=== PATIENT | female | born 1950 | race Caucasian/White ===

== ENCOUNTER → 2021-03-26 | Outpatient (CLI) | payer OTHER ==
[~2021-03-26] MED LIST: ALPRAZOLAM 0.0.25 M1 PO; AMLODIPINE BESY10 MG PO; APAP650 PO; CRANBERRY500 M3 PO; DICLOFENAC SOD100 G1 TOP; ELIQUIS5 MG PO; HYDROCHLOROTHIA25 M1 PO; METOPROLOL TART25 MG PO; PAROXETINE HCL20 MG PO; PRINIVIL40 MG PO; PROTONIX40 M2 PO; [UNRECOGNIZED DRUG - OTHER] PO; [UNRECOGNIZED DRUG - OTHER] PO
[2021-03-26 13:00] LABS: URINE BILIRUBIN NEGATIVE (Negative); URINE BLOOD NEGATIVE (Negative); URINE CLARITY CLEAR; URINE COLOR YELLOW; URINE GLUCOSE-RANDOM* NEGATIVE (Negative); URINE KETONES NEGATIVE (Negative); URINE LEUKOCYTES-REFLEX NEGATIVE (Negative); URINE NITRITE-REFLEX NEGATIVE (Negative); URINE PROTEIN (DIPSTICK) NEGATIVE (Negative); URINE SPECIFIC GRAVITY 1.025 (1.005-1.035); URINE UROBILINOGEN 0.2 E.U./dl (0.2-1.0)
[2021-03-26 13:02] LABS: HEMATOCRIT 36.5 % (37.0-47.0); MCHC 32.9 g/dL (28.0-37.0); MCV 94.1 fL (80.0-100.0); RBC 3.88 mil/uL (4.20-5.00); RDW 12.8 % (10.5-14.5); WBC 6.5 thou/uL (4.0-11.0)
[2021-03-26 13:13] LABS: CALCIUM 9.3 mg/dL (8.5-10.1); CREATININE 1.9 mg/dL (0.6-1.0); POTASSIUM 4.4 mmol/L (3.5-5.1)
[2021-03-26 13:15] LABS: PROTIME 10.9 Seconds (10.5-12.1)
--- NOTE | 2021-03-26 14:51 | EKG ---
[place] [address] [facility] [employer] [place] [address] ELECTROCARDIOGRAM REPORT Name: OJ ENRIQUEZ [facility] [id number] Admission: 03/26/21 Attend Phys: Piotr Jones MD Discharge: Date of : 52 Report #: [id number] [facility] Test Date: 2021-03-26 Test Time: 12:55:18 Pat Name: OJ ENRIQUEZ Department: Room: Gender: F Equipment Installation Professional: MARISSA : 1950 Requested By: Piotr Jones Order Number: [id number] MD: Scar Urbano Measurements Intervals [place] Rate: 63 P: 51 SC: 209 QRS: 6 QRSD: 107 T: 35 QT: 419 QTc: 429 Interpretive Statements Sinus rhythm Abnormal R-wave progression, early transition Abnormal T, consider ischemia, anterior leads No previous ECG available for comparison Electronically Signed On 03-26-2021 14:50:56 MOTOR VEHICLES INSPECTOR by Scar Urbano [email or web address] <ELECTRONICALLY SIGNED> By: Scar Urbano MD, [facility] 03/26/21 1450 1255 1255 Scar Urbano MD, FACC /EPI
== END ==
LOC: PAC 10:10
PROVIDERS: ATTEND Orthopaedic Surgery
DX: Z01.812 Encounter for preprocedural laboratory examination (principal); Z01.810 Encounter for preprocedural cardiovascular examination; M17.11 Unilateral primary osteoarthritis, right knee

== ENCOUNTER 2021-04-09 08:50 | Observation (INO) | payer OTHER ==
[~2021-04-09] VITALS: Ht 160 cm; Wt 104.3 kg
[2021-04-09 10:15] VITALS: BP 115/66
[2021-04-09 20:23] VITALS: BP 100/60
[2021-04-10 07:40] VITALS: BP 129/79
[2021-04-10 15:24] VITALS: BP 124/79
--- NOTE | 2021-04-11 09:46 | O ---
[facility] [place] [address] OPERATIVE REPORT Name: OJ ENRIQUEZ Room #: 443-P [facility] Adalid Noriega#: [id number] Admission: 04/09/21 Attend Phys: Piotr Jones MD Discharge: 04/10/21 Date of : 52 Report #: [id number] THIS REPORT FOR: cc: Jeffrey Davidson MD, Thomas P. MD Abraham,Piotr Villagran MD ~ DATE OF SERVICE: 04/09/2021 PREOPERATIVE DIAGNOSIS: Right knee osteoarthritis. POSTOPERATIVE DIAGNOSIS: Right hip osteoarthritis. PROCEDURE: Right total knee arthroplasty using Navio robotic assistance. SURGEON: Piotr Jones MD TREATMENT PLANT OPERATOR: Bhumika Kuhn PA-C. INDICATION FOR TREATMENT PLANT OPERATOR: Throughout the case, extensive retraction, manipulation of the knee was required. This was afforded to me by my diagnostic assistant. ANESTHESIA: LMA with femoral nerve block. IMPLANTS: [employer] size 4 Journey II BCS cobalt chrome femur, a size 3 tibia, size 11 constrained polyethylene and a size 29 patella. TOURNIQUET TIME: 68 minutes. ESTIMATED BLOOD LOSS: 25 mL COMPLICATIONS: None. SPECIMENS: None. CONDITION UPON LEAVING THE OR: Stable. INDICATIONS FOR PROCEDURE: The patient is a 70-year-old female with severe right knee osteoarthritis. She had failed conservative measures for this and after discussion with her, she elected for right total knee arthroplasty. DESCRIPTION OF PROCEDURE: Risks, benefits, alternatives, complications were discussed in detail with the patient including but not limited to risk of anesthesia, risk of damage to nerves, arteries, blood vessels, risk for infection, bleeding, risk for continued knee pain, need for reoperation. Informed consent was obtained from the patient. Right knee was appropriately marked in preoperative holding area. IV Ancef was given for preoperative [address] [address] OPERATIVE REPORT Name: OJ ENRIQUEZ Room #: 443-P ISMAEL Noriega#: [id number] Admission: 04/09/21 Attend Phys: Piotr Jones MD Discharge: 04/10/21 Date of : 52 Report #: [id number] antibiotics. She was brought to the operating room and placed in supine position on the operating table. LMA anesthesia was induced without complication. Tourniquet was placed on the right thigh. Right lower extremity was prepped and draped in normal sterile fashion. Timeout was performed properly identifying the patient and procedure as well as the instrumentation and implants. All in the operating room was in agreement. Right lower extremity was exsanguinated, tourniquet was inflated. Tourniquet time was 68 minutes. Standard midline approach to knee was made with 10 blade through the skin. Dissection was taken down sharply to the fascia and deep flaps were developed medially and laterally. Fresh 10 blade was used to make a medial parapatellar arthrotomy and the knee was inspected. There was severe tricompartmental osteoarthritis. ACL and PCL were removed sharply. Reference pins were placed in the femur and the tibia. The knee was then digitally mapped using the [employer] robotic system. Intraoperative plan was made and we sized the size 3 tibia, size 4 femur and a 10 spacer. After acceptance of the intraoperative plan, the distal femoral cut was made with Navio bur. Distal femoral cutting block was pinned in place and chamfer cuts were made. Attention was turned to the tibia. Remainder of the meniscus was removed with Bovie cautery. Tibial resection guide was pinned in place using Navio for placement. Tibial resection was made. Flexion and extension gaps were checked and found to have good balance in flexion and extension both medially and laterally. Tibia sized, found to be a size 3. Size 3 tibial trial was placed, pinned and punched. Size 4 femoral trial was placed, box cut was made. This was then trialed with a size 10 and then a size 11 polyethylene. Size 11 polyethylene demonstrated 1-2 mm laxity medially with a 2-3 mm laterally, particularly in deep flexion. It was felt we can make up for this with a constrained implant. A 9 mm of bone was resected from the posterior surface of the patella and a size 29 patellar trial button was placed. Knee was taken through range of motion, found to be stable, found to have good patellar tracking. Trial components were removed. Bony ends were thoroughly irrigated with normal saline. A final size 3 tibia, size 4 Journey II BCS cobalt chrome femur and a size 29 patella were cemented in place using standard cementation techniques. While the cement cured, a periarticular injection consisting of morphine, ropivacaine, epinephrine, Toradol was placed around the knee joint capsule. After the cement cured, tourniquet was deflated. Hemostasis was obtained with Bovie cautery. Final size 11 constrained polyethylene was placed. A gram of vancomycin was placed deep in the joint. The fascia was closed with 0 Vicryl. Skin was closed with 2-0 Vicryl, skin staple and a RHETT dressing was applied. The patient tolerated this procedure well and went to recovery room under care of anesthesia postoperatively. <ELECTRONICALLY SIGNED> By: Piotr Jones MD 04/11/21 0946 1517 1724 Piotr Jones MD /nt
== END 2021-04-10 16:38 | disposition home or self-care (01) ==
LOC: OR → 4S 17:31 → OR 17:32 → 4S 17:32
PROVIDERS: ADMIT Orthopaedic Surgery; ATTEND Orthopaedic Surgery
DX: M17.11 Unilateral primary osteoarthritis, right knee (principal); Z20.822 Contact with and (suspected) exposure to COVID-19; Z79.899 Other long term (current) drug therapy
CPT/HCPCS: 10102; 50010; 50101; 50415; 50954; 51130; 51225; 51320; 51412; 52001; 52282; 53000; 53078; 56527; 56528; 57095; 57103; 57110; 57127; 57180; 58239; 62110; 62900; 64039; 64043; 65060; 70005